=== PATIENT | male | born 1985 | race Caucasian/White ===

== ENCOUNTER 2021-01-19 22:01 | Emergency (ER) | payer OTHER ==
[2021-01-20] MEDS ORDERED: VIBRAMYCIN100 MG PO (02:08)
== END 2021-01-20 02:19 | disposition home or self-care (01) ==
LOC: FER 22:01
DX: S70.362A Insect bite (nonvenomous), left thigh, initial encounter (principal); S70.361A Insect bite (nonvenomous), right thigh, initial encounter; Z23 Encounter for immunization; K21.9 Gastro-esophageal reflux disease without esophagitis; F17.200 Nicotine dependence, unspecified, uncomplicated; Z79.899 Other long term (current) drug therapy; W57.XXXA Bitten or stung by nonvenomous insect and other nonvenomous arthropods, initial encounter
CPT/HCPCS: 90471; 90715

== ENCOUNTER 2022-01-03 10:06 | Emergency (ER) | payer OTHER ==
[~2022-01-03 10:06] MED LIST: VIBRAMYCIN100 MG PO
[2022-01-03 11:27] LABS: BASOPHIL 0.4 % (0-2); EOSINOPHIL 0.5 % (0-5); HCT 43.3 % (42.0-52.0); HGB 15.3 g/dl (13.2-18.0); LYMPHOCYTE 28.3 % (15-48); MCH 31.6 pg (25.0-31.0); MCHC 35.3 g/dL (32.0-36.0); MCV 89.5 fL (78.0-100.0); MONOCYTE 7.3 % (0-12); MPV 9.2 fL (6.0-9.5); NEUTROPHIL 63.1 % (41-80); NRBC 0; PLT 277 K/uL (150-400); RBC 4.84 M/uL (4.70-6.00); RDW 11.6 % (11.5-14.0); WBC 5.5 K/uL (4.0-10.5)
[2022-01-03 12:10] LABS: BUN/CREAT RATIO (CALC) 13.3 RATIO; CREATININE 0.9 mg/dL (0.67-1.17); POTASSIUM 3.9 mmol/L (3.5-5.1)
[2022-01-03] MEDS ORDERED: PREDNISONE 20MG20 MG PO (12:35)
== END 2022-01-03 12:51 | disposition home or self-care (01) ==
LOC: FER 10:06
PROVIDERS: Emergency Medicine
DX: R07.89 Other chest pain (principal); M54.12 Radiculopathy, cervical region; Z28.310 Unvaccinated for COVID-19
CPT/HCPCS: 36415; 71046; 72050; 73110; 80048; 82553; 84484; 85025; 85379; 93005